=== PATIENT | male | born 2000 | race Caucasian/White ===

== ENCOUNTER 2023-10-13 19:27 | Emergency (ER) | payer OTHER, SELFPAY ==
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
[2023-10-13 19:47] VITALS: BP 142/81; PULSE 73; RESP 16; TEMP 37.1; O2SAT 100
== END 2023-10-13 20:05 | disposition home or self-care (01) ==
PROVIDERS: Emergency Provider Nurse Practitioner
DX: S42.001A Fracture of unspecified part of right clavicle, initial encounter for closed fracture (principal); V29.99XA Rider (driver) (passenger) of other motorcycle injured in unspecified traffic accident, initial encounter
CPT/HCPCS: 73000; 99214; A4565; G0463